=== PATIENT | female | born 1995 | race Caucasian/White ===

== ENCOUNTER → 2019-11-30 | Outpatient (CLI) | payer OTHER ==
[~2019-11-30] MED LIST: BENADRYL25 M2 PO; MAALOX ADVANCE148 ML PO; MELATONIN5 M1 PO; PRENATAL TABLET PO; PROTONIX 40MG T40 MG PO; TYLENOL 500MG500 MG PO
== END ==
LOC: COL.RAD 07:09
DX: K31.84 Gastroparesis (principal); K21.9 Gastro-esophageal reflux disease without esophagitis
CPT/HCPCS: A9541